=== PATIENT | female | born 1985 | race Caucasian/White ===

== ENCOUNTER 2020-09-27 01:34 | Emergency (ER) | payer MEDICARE, MEDICAID, SELFPAY ==
[2020-09-27 01:50] VITALS: BP 000/00; PULSE 0; RESP 16; TEMP -17.7; TEMP 0; O2SAT 0; BMI 27.4
[2020-09-27 02:06] VITALS: BP 125/99; PULSE 106; RESP 14; O2SAT 94
[2020-09-27] MEDS: LORazepam 2 MG/ML VIAL IM (02:18)
[2020-09-27 02:20] VITALS: BP 135/95; PULSE 92; RESP 14; TEMP 36.9; O2SAT 98
--- NOTE | 2020-09-27 02:44 | PC.NURSE ---
pt required no restraints, pt is sleeping visable to staff. door open, skin warm and dry, no further bleeding to the left side of her lower lip.
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
[2020-09-27 03:10] VITALS: BP 125/84; PULSE 94; RESP 18; O2SAT 100
--- NOTE | 2020-09-27 03:11 | PC.NURSE ---
fio2 titrated to 1l from 2l pt sats 100% rr even and reg.
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
[2020-09-27 04:48] VITALS: BP 136/104; PULSE 99; RESP 18; O2SAT 99
[2020-09-27 05:55] VITALS: BP 121/80; PULSE 88; RESP 18; O2SAT 100
--- NOTE | 2020-09-27 06:44 | PC.NURSE ---
pt is difficult to wake. pt is on room air at this time and no desat. rr even reg. sat 98% on room air
--- NOTE | 2020-09-27 06:45 | PC.NURSE ---
no behavior restraint used. pt was medicated with ativan im for anxiety and restlessness and etoh intoxication.
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
== END 2020-09-27 07:59 | disposition home or self-care (01) ==
PROVIDERS: Emergency Provider Student in an Organized Health Care Education/Training Program
DX: F10.920 Alcohol use, unspecified with intoxication, uncomplicated (principal)
CPT/HCPCS: 96372; 99284; 99285; J2060

== ENCOUNTER 2020-12-17 15:12 | Outpatient (REF) | payer OTHER, SELFPAY | END 2020-12-17 15:13 | disposition home or self-care (01) | LOC: HO.LAB 15:12 | PROVIDERS: PCP Nurse Practitioner Family; Visit Provider Internal Medicine | DX: Z20.822 Contact with and (suspected) exposure to COVID-19 (principal) | CPT/HCPCS: 36415; C9803; U0003 ==